=== PATIENT | female | born 1960 | race Caucasian/White ===

== ENCOUNTER → 2017-03-06 | Outpatient (CLI) | payer MEDICARE, OTHER ==
[~2017-03-06] MED LIST: CLEOCIN HCL150 MG PO; CLEOCIN HCL300 MG PO; DURAGESIC1 EAC1 TD; IBUPROFEN 800800 M1 PO; LEVAQUIN 500 M500 MG PO; NORCO 5-325 TA1 EACH PO; VERAPAMIL ER240 M1 PO; VICODIN 5-5001 EACH PO
== END ==
LOC: M.RAD 11:01
DX: Z12.31 Encounter for screening mammogram for malignant neoplasm of breast (principal); J84.10 Pulmonary fibrosis, unspecified; R22.2 Localized swelling, mass and lump, trunk; M41.84 Other forms of scoliosis, thoracic region

== ENCOUNTER → 2017-03-24 | Outpatient (CLI) | payer MEDICARE, OTHER | LOC: M.CT 03-23 11:00 | DX: J98.11 Atelectasis (principal); J43.8 Other emphysema; N28.1 Cyst of kidney, acquired; D49.2 Neoplasm of unspecified behavior of bone, soft tissue, and skin ==

== ENCOUNTER 2018-05-19 11:41 | Emergency (ER) | payer OTHER ==
[~2018-05-19] VITALS: Ht 165.1 cm; Wt 67.6 kg
[2018-05-19] MEDS ORDERED: FLONASE 0.05%50 MCG NASAL (11:43)
[2018-05-19] MEDS ORDERED: ASPIRIN325 PO (11:43)
[2018-05-19] MEDS ORDERED: OMEPRAZOLE20 MG PO (11:44)
[2018-05-19] MEDS ORDERED: PROAIR HFA8.5 GM INH (11:44)
[2018-05-19] MEDS ORDERED: NEURONTIN 300300 M1 PO (11:44)
[2018-05-19] MEDS ORDERED: CELEXA 20 MG TA20 MG PO (11:45)
[2018-05-19 12:03] LABS: ABSOLUTE BASOPHILS 0.1 thou/uL (0.0-0.2); ABSOLUTE LYMPHOCYTES 2.2 thou/uL (0.8-5.3); ABSOLUTE MONOCYTES 0.7 thou/uL (0.0-1.2); ABSOLUTE NEUTROPHILS 7.5 thou/uL (1.6-8.1); BASOPHILS 0.6 %; EOSINOPHILS 0.4 %; HEMATOCRIT 42.8 % (37.0-47.0); HEMOGLOBIN 14.6 gm/dL (12.0-15.0); LYMPHOCYTES 21.2 %; MCH 29.1 pg (26.0-34.0); MCHC 34.2 g/dL (28.0-37.0); MCV 85.1 fL (80.0-100.0); MONOCYTES 6.8 %; MPV 7.4 fl. (7.2-11.1); NUCLEATED RBCS 0 /100WBC; PLATELET COUNT* 432 thou/uL (150-400); RBC 5.03 mil/uL (4.20-5.00); RDW-CV 14.9 % (10.5-14.5); WBC 10.5 thou/uL (4.0-11.0)
[2018-05-19 12:22] LABS: ALBUMIN 3.5 g/dL (3.4-5.0); ALKALINE PHOSPHATASE 100 U/L (46-116); ANION GAP 9 mmol/L (7-16); BUN 11 mg/dL (7-18); CALCIUM 9.5 mg/dL (8.5-10.1); CHLORIDE 105 mmol/L (98-107); CO2 29 mmol/L (21-32); CREATININE 0.9 mg/dL (0.6-1.3); GLUCOSE 88 mg/dL (70-99); POTASSIUM 3.9 mmol/L (3.5-5.1); SGOT 14 U/L (15-37); SGPT 19 U/L (30-65); SODIUM 143 mmol/L (136-145); TOTAL BILIRUBIN 0.2 mg/dL (<0.1-1.0); TOTAL PROTEIN 7.5 g/dL (6.4-8.2); TROPONIN-I LEVEL <0.06 ng/mL (<0.06)
[2018-05-19 12:26] LABS: PROTIME 10.2 Seconds (9.20-11.50)
[2018-05-19 14:24] LABS: URINE BILIRUBIN NEGATIVE (Negative); URINE BLOOD TRACE (Negative); URINE CLARITY CLEAR; URINE COLOR YELLOW; URINE GLUCOSE-RANDOM NEGATIVE (Negative); URINE KETONES NEGATIVE (Negative); URINE LEUKOCYTES-REFLEX NEGATIVE (Negative); URINE NITRITE-REFLEX NEGATIVE (Negative); URINE PROTEIN NEGATIVE (Negative); URINE SPECIFIC GRAVITY <= 1.005 (1.005-1.030); URINE UROBILINOGEN 0.2 E.U./dl (0.2-1.0)
[2018-05-19 14:47] VITALS: BP 155/78
--- NOTE | 2018-05-20 18:18 | EKG ---
[place] [address] ELECTROCARDIOGRAM REPORT Name: SAVANNAH FRANCIS Room: [facility]#: [id number] Admission: 05/19/18 Attend Phys: Discharge: 05/19/18 Date of : 58 Report #: [id number] THIS REPORT FOR: //name// [facility] ED Test Date: 2018-05-19 Test Time: 11:56:07 Pat Name: SAVANNAH WHITEAULT Department: Room: Gender: F [employer]: : 1960 Requested By: Orly Fischer Order Number: [id number] MD: Ovi Nelson Measurements Intervals Maxwell Rate: 74 P: 42 MA: 136 QRS: 22 QRSD: 94 T: 30 QT: 397 QTc: 441 Interpretive Statements Sinus rhythm Left ventricular hypertrophy, by voltage No previous ECG available for comparison Electronically Signed On 05-20-2018 18:18:06 CDT by Ovi Nelson [email or web address] <ELECTRONICALLY SIGNED> By: Ovi Nelson MD, [facility] 05/20/18 1818 1156 1156 Ovi Nelson MD, FACC /EPI
== END 2018-05-19 14:48 | disposition home or self-care (01) ==
LOC: M.ERS 11:41
PROVIDERS: Personal Emergency Response Attendant
DX: R51 Headache (principal); G89.29 Other chronic pain; F17.210 Nicotine dependence, cigarettes, uncomplicated; Z88.0 Allergy status to penicillin; Z88.1 Allergy status to other antibiotic agents

== ENCOUNTER → 2018-09-27 | Outpatient (CLI) | payer OTHER ==
[~2018-09-27] MED LIST changes: +ASPIRIN325 PO; +CELEXA 20 MG TA20 MG PO; +FLONASE 0.05%50 MCG NASAL; +NEURONTIN 300300 M1 PO; +OMEPRAZOLE20 MG PO; +PROAIR HFA8.5 GM INH
== END ==
LOC: M.RAD 14:42
DX: M25.511 Pain in right shoulder (principal)

== ENCOUNTER → 2019-10-25 | Outpatient (CLI) | payer MEDICARE | LOC: M.RAD 12:59 | PROVIDERS: ATTEND Nurse Practitioner Family | DX: Z12.31 Encounter for screening mammogram for malignant neoplasm of breast (principal) ==

== ENCOUNTER 2021-03-03 16:42 | Emergency (ER) | payer MEDICARE ==
[~2021-03-03] VITALS: Ht 165.1 cm; Wt 67.1 kg
[2021-03-03 17:46] LABS: URINE BLOOD 3+ (Negative); URINE CLARITY CLEAR; URINE COLOR YELLOW; URINE GLUCOSE-RANDOM NEGATIVE (Negative); URINE KETONES TRACE (Negative); URINE LEUKOCYTES-REFLEX NEGATIVE (Negative); URINE NITRITE-REFLEX NEGATIVE (Negative); URINE PROTEIN TRACE (Negative); URINE SPECIFIC GRAVITY >= 1.030 (1.005-1.030)
[2021-03-03 17:48] LABS: ICTOTEST (BILI CONFIRMATORY) Positive (Negative); URINE BILIRUBIN 1+ (Negative)
[2021-03-03 17:49] LABS: BACTERIA-REFLEX None Seen /HPF (None Seen); CASTS None Seen /LPF (None Seen); CRYSTALS None Seen /LPF (None Seen); SQUAMOUS 0-3 Few /LPF (0-3); URINE WBC-REFLEX None Seen /HPF (0-5)
[2021-03-03 18:38] LABS: HEMATOCRIT 41.6 % (37.0-47.0); MCH 29.1 pg (26.0-34.0); MCHC 33.7 g/dL (28.0-37.0); MCV 86.5 fL (80.0-100.0); MPV 7.6 fl. (7.2-11.1); RBC 4.81 mil/uL (4.20-5.00); RDW-CV 14.7 % (10.5-14.5); WBC 14.4 thou/uL (4.0-11.0)
[2021-03-03 18:43] LABS: POTASSIUM 3.8 mmol/L (3.5-5.1)
[2021-03-03 18:47] LABS: ALBUMIN 3.7 g/dL (3.4-5.0); TOTAL BILIRUBIN 0.3 mg/dL (<0.1-1.0); TOTAL PROTEIN 7.3 g/dL (6.4-8.2)
[2021-03-03] MEDS ORDERED: ZOFRAN ODT4 MG PO (21:40)
[2021-03-03] MEDS ORDERED: HYDROCODON-ACE1 EAC7 PO (21:40)
[2021-03-03] MEDS ORDERED: MACROBID 100 M100 M1 PO (21:40)
[2021-03-03 22:00] VITALS: BP 114/74
== END 2021-03-03 22:00 | disposition home or self-care (01) ==
LOC: M.ERS 16:42
PROVIDERS: Emergency Medicine Emergency Medical Services; Student in an Organized Health Care Education/Training Program
DX: R10.84 Generalized abdominal pain (principal); I10 Essential (primary) hypertension; F17.210 Nicotine dependence, cigarettes, uncomplicated; Z79.899 Other long term (current) drug therapy; Z88.0 Allergy status to penicillin; Z88.1 Allergy status to other antibiotic agents